=== PATIENT | male | born 1965 | race Caucasian/White ===

== ENCOUNTER → 2019-03-22 | Outpatient (CLI) | payer MEDICARE ==
[2019-03-22 11:46] LABS: EOS # 0.2 (0.04-0.40); EOS % 1.8 % (0.0-4.0); HEMATOCRIT 44.1 % (42.0-52.0); HEMOGLOBIN 14.5 g/dL (13.5-18.0); MEAN CELL VOLUME 91 fl (78-100); MEAN CORPUSCULAR HEMOGLOBIN 30 pg (27-31); MEAN CORPUSCULAR HGB CONC 33 g/dL (33-37); MEAN PLATELET VOLUME 8.7 fl (7.4-10.4); MONO # 0.6 (0.20-0.80); NEU # 4.1 (1.40-6.50); PLATELET COUNT 315 K/mm3 (130-400); RED BLOOD COUNT 4.86 M/mm3 (4.20-5.60); WHITE BLOOD COUNT 9.5 K/mm3 (4.8-10.8)
[2019-03-22 11:58] LABS: ALBUMIN 4.4 g/dL (3.5-5.0); POTASSIUM 4.2 mmol/L (3.5-5.1)
[2019-03-22 11:59] LABS: CALCIUM 9.9 mg/dL (8.3-10.5)
[2019-03-22 12:00] LABS: TOTAL PROTEIN 8.3 g/dL (6.4-8.3)
[2019-03-22 12:02] LABS: TOTAL BILIRUBIN 0.4 mg/dL (0.2-1.2)
[2019-03-22 12:47] LABS: LYMPH# 4.7 (1.50-4.00)
[2019-03-22 12:54] LABS: ERYTHROCYTE SEDIMENTATION RATE 23 mm/hr (0-20)
== END ==
LOC: LAB 11:34
PROVIDERS: Internal Medicine
DX: Z00.00 Encounter for general adult medical examination without abnormal findings (principal); Z12.11 Encounter for screening for malignant neoplasm of colon

== ENCOUNTER → 2019-11-06 | Outpatient (CLI) | payer MEDICARE ==
[~2019-11-06] MED LIST: ACETAMINOPHEN-H1 TA1 PO; PREGABALIN75 MG PO; TIZANIDINE HYDRO4 MG PO; TRAMADOL 50 MG TAB; VANCOCIN125 MG PO
== END ==
LOC: LAB 11:21
DX: R50.9 Fever, unspecified (principal); R19.7 Diarrhea, unspecified; Z20.828 Contact with and (suspected) exposure to other viral communicable diseases; Z48.810 Encounter for surgical aftercare following surgery on the sense organs

== ENCOUNTER 2019-11-08 14:59 | Emergency (ER) | payer MEDICARE ==
[~2019-11-08] VITALS: Ht 188 cm; Wt 100.0 kg
[2019-11-08 15:46] LABS: BASO # 0.1 (0.02-0.10); EOS # 0.1 (0.04-0.40); EOS % 0.5 % (0.0-4.0); HEMOGLOBIN 14.8 g/dL (13.5-18.0); LYMPH# 2.4 (1.50-4.00); MEAN CELL VOLUME 90 fl (78-100); MEAN CORPUSCULAR HEMOGLOBIN 30 pg (27-31); MEAN CORPUSCULAR HGB CONC 34 g/dL (33-37); MEAN PLATELET VOLUME 8.9 fl (7.4-10.4); MONO # 1.3 (0.20-0.80); NEU # 7.9 (1.40-6.50); PLATELET COUNT 380 K/mm3 (130-400); RED BLOOD COUNT 4.89 M/mm3 (4.20-5.60); RED CELL DISTRIBUTION WIDTH 13.4 % (11.5-14.5); WHITE BLOOD COUNT 11.8 K/mm3 (4.8-10.8)
[2019-11-08 15:59] LABS: ALBUMIN 4.1 g/dL (3.5-5.0)
[2019-11-08 16:00] LABS: POTASSIUM 3.6 mmol/L (3.5-5.1)
[2019-11-08 16:01] LABS: CALCIUM 9.4 mg/dL (8.3-10.5)
[2019-11-08 16:02] LABS: TOTAL PROTEIN 8.3 g/dL (6.4-8.3)
[2019-11-08 16:04] LABS: TOTAL BILIRUBIN 0.7 mg/dL (0.2-1.2)
[2019-11-08] MEDS ORDERED: TIZANIDINE HYDRO4 MG PO (16:28)
[2019-11-08] MEDS ORDERED: ACETAMINOPHEN-H1 TA1 PO (16:28)
[2019-11-08] MEDS ORDERED: TRAMADOL 50 MG TAB (16:28)
[2019-11-08] MEDS ORDERED: PREGABALIN75 MG PO (16:28)
[2019-11-08 17:45] VITALS: BP 130/61
== END 2019-11-08 17:55 | disposition other institution (70) ==
LOC: ED 14:59 → MED/SURG 17:40 → ED 17:55
PROVIDERS: Nurse Practitioner Family
DX: A09 Infectious gastroenteritis and colitis, unspecified (principal); E86.0 Dehydration; M54.16 Radiculopathy, lumbar region; M17.12 Unilateral primary osteoarthritis, left knee; G89.29 Other chronic pain; F17.210 Nicotine dependence, cigarettes, uncomplicated; Z79.891 Long term (current) use of opiate analgesic; Z85.840 Personal history of malignant neoplasm of eye; Z87.442 Personal history of urinary calculi; Z85.828 Personal history of other malignant neoplasm of skin; Z90.49 Acquired absence of other specified parts of digestive tract; Z96.651 Presence of right artificial knee joint
CPT/HCPCS: J2270; J2405; J7120; Q9967

== ENCOUNTER 2019-11-08 17:46 | Inpatient (IN) | payer MEDICARE ==
[~2019-11-08] VITALS: Ht 188 cm; Wt 96.9 kg
[~2019-11-08 17:46] MED LIST changes: -VANCOCIN125 MG PO
[2019-11-08 17:53] VITALS: BP 130/86
[2019-11-08 21:36] VITALS: BP 107/50
[2019-11-09 02:04] VITALS: BP 126/71
[2019-11-09 05:33] VITALS: BP 117/54
[2019-11-09 06:52] LABS: HEMATOCRIT 37.2 % (42.0-52.0); HEMOGLOBIN 12.4 g/dL (13.5-18.0); MEAN CELL VOLUME 91 fl (78-100); MEAN CORPUSCULAR HEMOGLOBIN 30 pg (27-31); MEAN CORPUSCULAR HGB CONC 33 g/dL (33-37); MEAN PLATELET VOLUME 8.9 fl (7.4-10.4); PLATELET COUNT 311 K/mm3 (130-400); RED CELL DISTRIBUTION WIDTH 13.3 % (11.5-14.5); WHITE BLOOD COUNT 7.4 K/mm3 (4.8-10.8)
[2019-11-09 06:55] LABS: ALBUMIN 3.1 g/dL (3.5-5.0)
[2019-11-09 06:56] LABS: POTASSIUM 3.4 mmol/L (3.5-5.1)
[2019-11-09 06:58] LABS: TOTAL PROTEIN 6.3 g/dL (6.4-8.3)
[2019-11-09 07:00] LABS: TOTAL BILIRUBIN 0.5 mg/dL (0.2-1.2)
[2019-11-09 07:24] LABS: LYMPHOCYTE 41 % (20-51); MONOCYTE 14 % (3-10); NEUTROPHILS 44 % (42-75)
[2019-11-09 10:29] VITALS: BP 106/60
[2019-11-09 14:20] VITALS: BP 104/55
[2019-11-09 17:56] VITALS: BP 100/55
[2019-11-09 22:10] VITALS: BP 131/55
[2019-11-10 01:43] VITALS: BP 117/74
[2019-11-10 06:12] VITALS: BP 131/70
[2019-11-10] MEDS ORDERED: VANCOCIN125 MG PO (09:50)
[2019-11-10 10:06] VITALS: BP 126/78
== END 2019-11-10 10:43 | disposition home or self-care (01) | DRG 373 ==
LOC: MED/SURG 17:46
PROVIDERS: ADMIT Nurse Practitioner Family
DX: A04.5 Campylobacter enteritis (principal); M54.16 Radiculopathy, lumbar region; G89.29 Other chronic pain; M17.12 Unilateral primary osteoarthritis, left knee; E86.0 Dehydration; F17.210 Nicotine dependence, cigarettes, uncomplicated; Z79.891 Long term (current) use of opiate analgesic; Z96.651 Presence of right artificial knee joint
CPT/HCPCS: J1650; J2270; J7120

== ENCOUNTER → 2021-04-02 | Outpatient (CLI) | payer MEDICARE ==
[~2021-04-02] MED LIST changes: +VANCOCIN125 MG PO
[2021-04-02 16:38] LABS: BASO # 0.03 K/mm3 (0.02-0.10); EOS # 0.16 K/mm3 (0.04-0.40); EOS % 1.8 % (0.0-4.0); HEMATOCRIT 44.9 % (42.0-52.0); LYMPH# 3.87 K/mm3 (1.50-4.00); MEAN CELL VOLUME 92 fl (78-100); MEAN CORPUSCULAR HEMOGLOBIN 31 pg (27-31); MEAN CORPUSCULAR HGB CONC 33 g/dL (33-37); MEAN PLATELET VOLUME 8.4 fl (7.4-10.4); MONO # 0.54 K/mm3 (0.20-0.80); NEU # 4.21 K/mm3 (1.40-6.50); PLATELET COUNT 272 K/mm3 (130-400); RED BLOOD COUNT 4.86 M/mm3 (4.20-5.60); RED CELL DISTRIBUTION WIDTH 12.2 % (11.5-14.5); WHITE BLOOD COUNT 8.8 K/mm3 (4.8-10.8)
[2021-04-02 16:41] LABS: ALBUMIN 4.3 g/dL (3.5-5.0)
[2021-04-02 16:42] LABS: POTASSIUM 4.2 mmol/L (3.5-5.1)
[2021-04-02 16:43] LABS: CALCIUM 9.6 mg/dL (8.3-10.5)
[2021-04-02 16:46] LABS: TOTAL BILIRUBIN 0.5 mg/dL (0.2-1.2)
== END ==
LOC: LAB 16:03
PROVIDERS: Internal Medicine
DX: Z00.00 Encounter for general adult medical examination without abnormal findings (principal); R73.03 Prediabetes; Z12.5 Encounter for screening for malignant neoplasm of prostate; K90.9 Intestinal malabsorption, unspecified

== ENCOUNTER → 2022-04-15 | Outpatient (CLI) | payer MEDICARE ==
[2022-04-15 11:10] LABS: BASO # 0.02 K/mm3 (0.02-0.10); EOS # 0.11 K/mm3 (0.04-0.40); EOS % 1.3 % (0.0-4.0); HEMATOCRIT 45.1 % (42.0-52.0); HEMOGLOBIN 15.1 g/dL (13.5-18.0); MEAN CELL VOLUME 91 fl (78-100); MEAN CORPUSCULAR HEMOGLOBIN 30 pg (27-31); MEAN CORPUSCULAR HGB CONC 34 g/dL (33-37); MEAN PLATELET VOLUME 8.5 fl (7.4-10.4); MONO # 0.46 K/mm3 (0.20-0.80); NEU # 4.73 K/mm3 (1.40-6.50); PLATELET COUNT 278 K/mm3 (130-400); RED BLOOD COUNT 4.96 M/mm3 (4.20-5.60); RED CELL DISTRIBUTION WIDTH 12.4 % (11.5-14.5); WHITE BLOOD COUNT 8.7 K/mm3 (4.8-10.8)
[2022-04-15 11:18] LABS: ALBUMIN 4.3 g/dL (3.5-5.0); POTASSIUM 4.4 mmol/L (3.5-5.1)
[2022-04-15 11:19] LABS: CALCIUM 9.7 mg/dL (8.3-10.5)
[2022-04-15 11:21] LABS: TOTAL PROTEIN 8.6 g/dL (6.4-8.3)
[2022-04-15 11:22] LABS: TOTAL BILIRUBIN 0.7 mg/dL (0.2-1.2)
[2022-04-15 11:27] LABS: MAGNESIUM 1.86 mg/dL (1.60-2.60)
[2022-04-15 12:36] LABS: ERYTHROCYTE SEDIMENTATION RATE 6 mm/hr (0-20)
[2022-04-15 23:58] LABS: TESTOSTERONE 321 ng/dL (221-716)
== END ==
LOC: LAB 10:51
PROVIDERS: Internal Medicine
DX: Z00.00 Encounter for general adult medical examination without abnormal findings (principal); Z12.5 Encounter for screening for malignant neoplasm of prostate; M19.91 Primary osteoarthritis, unspecified site; N20.0 Calculus of kidney; M47.817 Spondylosis without myelopathy or radiculopathy, lumbosacral region; K90.9 Intestinal malabsorption, unspecified; G89.4 Chronic pain syndrome; R73.03 Prediabetes; Z72.0 Tobacco use

== ENCOUNTER → 2024-06-08 | Outpatient (CLI) | payer MEDICARE ==
[2024-06-08 15:18] LABS: BASO # 0.02 K/mm3 (0.02-0.10); EOS # 0.07 K/mm3 (0.04-0.40); EOS % 0.8 % (0.0-4.0); HEMATOCRIT 45.4 % (42.0-52.0); HEMOGLOBIN 15.2 g/dL (13.5-18.0); LYMPH# 4.22 K/mm3 (1.50-4.00); MEAN CELL VOLUME 92 fl (78-100); MEAN CORPUSCULAR HEMOGLOBIN 31 pg (27-31); MEAN CORPUSCULAR HGB CONC 34 g/dL (33-37); MONO # 0.47 K/mm3 (0.20-0.80); NEU # 3.71 K/mm3 (1.40-6.50); PLATELET COUNT 273 K/mm3 (130-400); RED BLOOD COUNT 4.93 M/mm3 (4.20-5.60); RED CELL DISTRIBUTION WIDTH 12.3 % (11.5-14.5); WHITE BLOOD COUNT 8.5 K/mm3 (4.8-10.8)
[2024-06-08 15:25] LABS: ALBUMIN 4.3 g/dL (3.5-5.0)
[2024-06-08 15:26] LABS: CALCIUM 9.7 mg/dL (8.3-10.5)
[2024-06-08 15:28] LABS: TOTAL PROTEIN 8.7 g/dL (6.4-8.3)
[2024-06-08 15:30] LABS: TOTAL BILIRUBIN 0.4 mg/dL (0.2-1.2)
[2024-06-08 15:35] LABS: MAGNESIUM 1.72 mg/dL (1.60-2.60)
[2024-06-08 16:28] LABS: URINE APPEARANCE CLEAR (CLEAR); URINE COLOR YELLOW (YELLOW)
[2024-06-08 16:29] LABS: PH-URINE 5.5 (5.0 - 8.0); URINE PROTEIN(semi-quant) NEGATIVE (NEGATIVE)
[2024-06-08 16:30] LABS: URINE BILIRUBIN NEGATIVE (NEGATIVE); URINE BLOOD NEGATIVE (NEGATIVE); URINE GLUCOSE 2+ (NEGATIVE); URINE KETONE NEGATIVE (NEGATIVE); URINE LEUKOCYTE ESTERASE NEGATIVE (NEGATIVE); URINE NITRATE NEGATIVE (NEGATIVE)
[2024-06-08 16:31] LABS: URINE MUCUS PRESENT (NOT PRESENT); URINE WBC 0-1 /hpf (0-3)
== END ==
LOC: LAB 14:59
PROVIDERS: Internal Medicine
DX: E78.2 Mixed hyperlipidemia (principal); K90.9 Intestinal malabsorption, unspecified; R73.03 Prediabetes